=== PATIENT | female | born 1945 | race Caucasian/White ===

== ENCOUNTER 2017-03-30 02:12 | Emergency (ER) | payer OTHER ==
[~2017-03-30] VITALS: Ht 160 cm; Wt 59.0 kg
[2017-03-30 02:20] VITALS: BP 139/50
[2017-03-30 02:40] LABS: Basophils # (auto) 0 uL; Basophils % (auto) 0.3 % (0.0-2.0); DEFINITIVE VIEW TRANSMISSION; Eosinophils # (auto) 0 uL; Eosinophils % (auto) 0.1 % (0.0-7.0); Hematocrit 40.2 % (36.0-46.0); Hemoglobin 12.9 g/dL (12.2-16.2); Lymphocytes # (auto) 1.1 uL; Lymphocytes % (auto) 9.3 % (10.0-50.0); Mean Corpuscular Hemoglobin 24.3 pg (28.0-32.0); Mean Corpuscular Hgb Conc. 32.1 g/dL (32.0-36.0); Mean Corpuscular Volume 75.9 fL (80.0-100.0); Mean Platelet Volume 9.9 fL (7.4-10.4); Monocytes # (auto) 0.1 uL; Monocytes % (auto) 1.1 % (0.0-12.0); Neutrophils # (auto) 10.8 uL; Neutrophils % (auto) 89.2 % (37.0-80.0); Platelet Count (auto) 352 10^3/uL (140-450); Red Cell Distribution Width 16.1 % (11.6-16.0); SUSPECT VIEW TRANSMISSION; White Blood Cell 12.1 10^3/uL (4.4-10.8)
[2017-03-30 02:57] LABS: Albumin 3.7 g/dL (3.4-5.0); BUN/Creatinine Ratio 12.1; Potassium 3.8 mmol/L (3.5-5.1)
[2017-03-30 03:00] LABS: Bilirubin, Total 0.4 mg/dL (0.2-1.0); Total Protein 7.9 g/dL (6.4-8.2)
[2017-03-30 03:03] LABS: Magnesium 1.3 mg/dL (1.6-2.6)
== END 2017-03-30 04:33 | disposition left against medical advice (07) ==
LOC: ER 02:12
DX: R11.2 Nausea with vomiting, unspecified (principal); R19.7 Diarrhea, unspecified; Z53.21 Procedure and treatment not carried out due to patient leaving prior to being seen by health care provider
CPT/HCPCS: 36415; 80053; 82150; 83690; 83735; 84484; 85025

== ENCOUNTER 2025-06-30 08:10 | Inpatient (IN) | payer OTHER ==
[2025-06-30] VITALS (7 sets, daily range): BP systolic 80–128; BP diastolic 36–67; PULSE 83–106; RESP 18–30; O2SAT 90–100
[~2025-06-30] VITALS: Ht 165.1 cm; Wt 59.0 kg
[~2025-06-30 08:10] MED LIST: AMLO1TAB22 PO; ATOR40TA52 PO; CARV12.544 PO; CLOP75TA70 PO; FAMO40TA7 PO; FURO40TA4 PO; GABA-1250 PO; HYDR-2792 PO; HYDR-4902 PO; LEVO125T7 PO; OXYB5TAB14 PO; PROC10TA6 PO
--- NOTE | 2025-06-30 08:24 | ED.PDOC ---
History of Present Illness HPI Comments 79-year-old female BIBA with prior medical history of diabetes, NM, CAD, cancer: Surgical history of PTCA, cancer removal of the right lobe in April and chief complaint of shortness a breath. EMS report that the patient has a had shortness a breath since 2:00 a.m. this morning with worsening symptoms associ ated with spitting of red blood. When EMS arrived on scene the patient was weak, dizzy and was satting at 80% room air, EMS gave with the patient 6 L of O2 NC which brought it up to 96% but in route down to 94%. In the ER patient is currently using muscular respiration. Denies chills, fever, N/V/D,CP. No other associated symptoms, modifiers, recent injuries or sick contacts present at this time. 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 BUFFER History Family History Family History: Reviewed,noncontributory to illness, Unknown Social History Smoker: Non-Smoker Alcohol: Denies ETOH Use Drugs: Denies Drug Use Lives In: Home Constitutional: denies: chills, diaphoresis, fatigue, fever, malaise, sweats, weakness, others EENTM: denies: blurred vision, double vision, ear bleeding, ear discharge, ear drainage, ear pain, ear ringing, eye pain, eye redness, hearing loss, mouth pain, mouth swelling, nasal discharge, nose bleeding, nose congestion, nose pain, photophobia, tearing, throat pain, throat swelling, voice changes, others Respiratory: reports: shortness of breath; denies: cough, hemoptysis, orthopnea, SOB at rest, SOB with excertion, stridor, wheezing, others Cardiovascular: denies: chest pain, dizzy spells, diaphoresis, Dyspnea on exertion, edema, irregular heart beat, left arm pain, lightheadedness, palpitations, PND, syncope, others Gastrointestinal: denies: abdomen distended, abdominal pain, blood streaked bowels, constipated, diarrhea, dysphagia, difficulty swallowing, hematemesis, melena, nausea, poor appetite, poor fluid intake, rectal bleeding, rectal pain, vomiting, others Genitourinary: denies: abnormal vagina bleeding, burning, dyspareunia, dysuria, flank pain, frequency, hematuria, incontinence, pain, , vagina discharge, urgency, others Neurological: denies: dizziness, fainting, headache, left sided numbness, left sided weakness, numbness, paresthesia, pre-existing deficit, right sided numbness, right sided weakness, seizure, speech problems, tingling, tremors, weakness, others Musculoskeletal: denies: back pain, gout, joint pain, joint swelling, muscle pain, muscle stiffness, neck pain, others Integumetry: denies: bruises, change in color, change in hair/nails, dryness, laceration, lesions, lumps, rash, wounds, others Allergic/Immunocompromised: denies: Difficulty Healing, Frequent Infections, Hives, Itching, others Hematologic/Lymphatic: denies: anemia, blood clots, easy bleeding, easy bruising, swollen glands, others Endocrine: denies: excessive hunger, excessive sweating, excessive thirst, excessive urination, flushing, intolerance to cold, intolerance to heat, unexplained weight gain, unexplained weight loss, others Psychiatric: denies: anxiety, bipolar disorder, depression, hopeless, panic disorder, schizophrenia, sleepless, suicidal, others All Other Systems: Reviewed and Negative Physical Exam General Appearance: Normal, Severe Distress HEENT: Normal ENT Inspection, Pharynx Normal, TMs Normal Neck: Full Range of Motion, Non-Tender, Normal, Normal Inspection Respiratory: Accessory Muscle Use, Chest Non-Tender, Respiratory Distress, Wheezing Cardiovascular: No Edema, No JVD, No Murmur, No Gallop, Normal Peripheral Pulses, Tachycardia Breast Exam: Deferred Gastrointestinal: No Organomegaly, Non Tender, No Pulsatile Mass, Normal Bowel Sounds, Soft Genitalia: Deferred Pelvic: Deferred Rectal: Deferred Extremities: No calf tenderness, Non-tender, No pedal edema Musculoskeletal : Apperance: Normal Neurologic: Alert, No Motor Deficits, Normal Affect, Normal Mood, No Sensory Deficits Cerebellar Function: NOT DONE Reflexes: NOT DONE Skin: Dry, Normal Color, Warm Lymphatic: No Adenopathy Was a procedure done? 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: Attending Physician Indication: Hypotension, CVP monitoring Room prepared for procedure: Yes Well Treatment Offsider performed hand hygien: Yes Maximal sterile barrier precau: Mask/Eye shield, Sterile gown Skin Preparation: Chlorhexidine gluconate, Providine iodine Skin preparation completely dr: Yes Insertion site: Right, Internal jugular Central line catheter type: Gru-[id number] dialysis Number of lumens: 3 Antiseptic ointment applied to: Yes Post Assessment: Chest X-Ray Intubation Indication: Respiratory Insufficiency Pretreated with: Analgesia Medicated with: Vecuronium Intubation Approach: Orotracheal Intubation size: cm (8) Differential Dx Considerations may include: Pneumonia Electrolyte imbalance X-Ray, Labs, Meds, VS Vital Signs Date Time Temp Pulse Resp B/P (MAP) Pulse Ox O2 Delivery O2 Flow Rate FiO2 06/30/25 17:30 72/42 06/30/25 17:25 73/41 06/30/25 17:20 77/41 06/30/25 16:31 102/53 06/30/25 16:28 95 18 102/53 (69) 94 40 06/30/25 16:00 97 06/30/25 15:45 134/68 06/30/25 15:15 113/59 06/30/25 14:53 106 30 118/67 91 40 06/30/25 14:20 101 18 139/66 (90) 92 40 06/30/25 13:45 99.7 106 30 118/67 (84) 91 99.7 06/30/25 13:30 99.7 107 30 146/68 (94) 91 99.7 06/30/25 13:15 99.7 105 30 131/62 (85) 91 99.7 06/30/25 13:00 99.7 109 30 135/63 (87) 91 99.7 06/30/25 12:45 99.7 110 30 125/65 (85) 92 99.7 06/30/25 12:30 99.7 107 30 120/66 (84) 93 99.7 06/30/25 12:15 99.7 110 30 126/63 (84) 93 99.7 06/30/25 12:00 110 06/30/25 12:00 99.7 110 30 157/64 (95) 93 99.7 06/30/25 11:45 99.7 108 30 136/67 (90) 95 99.7 06/30/25 11:30 162/73 06/30/25 11:30 99.7 109 30 152/69 (96) 95 99.7 06/30/25 11:28 108 06/30/25 11:17 108 18 149/70 (96) 100 40 06/30/25 11:15 105 30 136/69 (91) 100 06/30/25 11:00 105 30 118/61 (80) 100 06/30/25 10:45 103 30 101/55 (70) 99 06/30/25 10:30 105 06/30/25 10:15 128/45 06/30/25 10:15 102 18 128/45 (72) 96 100 06/30/25 10:15 102 18 128/45 (72) 96 100 06/30/25 10:14 128/45 06/30/25 09:25 111 30 128/45 (72) 99 06/30/25 09:03 Bi-Pap+ 100 100 06/30/25 09:00 97.0 127 30 169/79 (109) 99 97.0 06/30/25 08:34 127 Facial BiPAP Mask 100 06/30/25 08:15 119 26 225/94 84 Lab Test 06/30/25 16:51 06/30/25 14:09 06/30/25 11:45 06/30/25 11:09 Range/Units Troponin I High Sensitivity 30 30 </=34 ng/L Lactic Acid Level 3.3 *H 0.4-2.0 mmol/L Urine Color Light-yellow Yellow Urine Clarity Hazy H Clear Urine pH 6.0 5.0-9.0 Urine Specific Diamond 1.015 1.001-1.035 Urine Protein 3+ H Negative Urine Ketones Negative Negative Urine Blood Negative Negative /uL Urine Nitrite Negative Negative Urine Bilirubin Negative Negative Urine Urobilinogen Normal Negative mg/dL Urine Leukocyte Esterase Negative Negative /uL Urine RBC 2 0 - 4 /hpf Urine Microscopic WBC 6 H 0-5 /HPF Urine Squamous Epithelial Cells Few <5 /hpf Urine Bacteria None seen None Seen /hpf Urine Glucose Normal Normal mg/dL Blood Gas Specimen Type Arterial Blood Gas Sample Site Right radial Blood Gas Patient Temperature 37.0 Arterial Blood Date Drawn [id number] Arterial Blood pH 7.235 *L 7.350-7.450 Arterial Blood Partial Pressure CO2 45.1 H 32.0-45.0 mmHg Arterial Blood Partial Pressure O2 321.4 *H 83.0-108.0 mmHg Arterial Blood HCO3 18.7 L 21.0-28.0 mmol/L Arterial Blood Oxygen Saturation 99.6 H 94.0-98.0 % Arterial Blood Base Excess -8.5 L -2.0-3.0 mmol/L Arterial Blood Oxyhemoglobin 98.4 H 94.0-98.0 % Arterial Blood Carboxyhemoglobin 0.6 0.5-1.5 % Arterial Blood Methemoglobin 0.6 0.0-1.5 % Quintin Test Modified Blood Gas Total Hemoglobin 11.40 L 12.0-16.0 g/dL Blood Gas Set Respiration Rate 18.0 Blood Gas Modality Vent - ac FiO2 % 100.0 Blood Gas Tidal Volume 450.0 Blood Gas PEEP or CPAP 5.0 Blood Gas Critical Value Read Back Yes Blood Gas Notified Whom louisa Montaño md Blood Gas Notified Time [id number] Blood Gas Notified By lisa Rivero development vice president Test 06/30/25 09:48 06/30/25 09:33 06/30/25 09:02 06/30/25 08:50 Range/Units Lactic Acid Level 2.9 *H 0.4-2.0 mmol/L Blood Gas Specimen Type Arterial Blood Gas Sample Site Right radial Blood Gas Patient Temperature 37.0 Arterial Blood Date Drawn [id number] Arterial Blood pH 7.289 L 7.350-7.450 Arterial Blood Partial Pressure CO2 37.7 32.0-45.0 mmHg Arterial Blood Partial Pressure O2 245.1 H 83.0-108.0 mmHg Arterial Blood HCO3 17.7 L 21.0-28.0 mmol/L Arterial Blood Oxygen Saturation 99.4 H 94.0-98.0 % Arterial Blood Base Excess -8.2 L -2.0-3.0 mmol/L Arterial Blood Oxyhemoglobin 98.2 H 94.0-98.0 % Arterial Blood Carboxyhemoglobin 0.9 0.5-1.5 % Arterial Blood Methemoglobin 0.3 0.0-1.5 % Quintin Test Yes Blood Gas Total Hemoglobin 11.70 L 12.0-16.0 g/dL Blood Gas Modality Mask - bipap FiO2 % 100.0 Blood Gas EPAP 5 Blood Gas IPAP 12 POC Glucose 205 H 70-106 mg/dl White Blood Count 1.9 L 4.4-10.8 10^3/uL Red Blood Count 4.36 4.0-5.20 10^6/uL Hemoglobin 12.4 12.2-16.2 g/dL Hematocrit 37.6 36.0-46.0 % Mean Corpuscular Volume 86.4 80.0-100.0 fL Mean Corpuscular Hemoglobin 28.4 28.0-32.0 pg Mean Corpuscular Hemoglobin Concent 32.9 32.0-36.0 g/dL Red Cell Distribution Width 15.8 H 11.8-14.3 % Platelet Count 72 L 140-450 10^3/uL Mean Platelet Volume 7.8 6.9-10.8 fL Neutrophils (%) (Auto) 54.2 37.0-80.0 % Lymphocytes (%) (Auto) 43.7 10.0-50.0 % Monocytes (%) (Auto) 1.6 0.0-12.0 % Eosinophils (%) (Auto) 0.2 0.0-7.0 % Basophils (%) (Auto) 0.3 0.0-2.0 % Neutrophils # (Auto) 1.0 L 1.6-8.6 10 ^3/uL Lymphocytes # (Auto) 0.8 0.4-5.4 10 ^3/uL Monocytes # (Auto) 0 0-1.3 10 ^3/uL Eosinophils # (Auto) 0 0-0.8 10 ^3/uL Basophils # (Auto) 0 0-0.2 10 ^3/uL Nucleated Red Blood Cells 0.9 % Platelet Estimate Decreased Clumped Platelets Few Anisocytosis (manual) Slight Sodium Level 138 136-145 mmol/L Potassium Level 4.9 3.5-5.1 mmol/L Chloride Level 107 98-107 mmol/L Carbon Dioxide Level 19 L 20-31 mmol/L Anion Gap 12 5-15 Blood Urea Nitrogen 27 H 9-23 mg/dL Creatinine 2.18 H 0.550-1.02 mg/dL Glomerular Filtration Rate Calc 23 >90 mL/min BUN/Creatinine Ratio 12.4 10.0-20.0 Serum Glucose 198 H 74-106 mg/dL Calcium Level 9.3 8.7-10.4 mg/dL Total Bilirubin 0.4 0.2-1.0 mg/dL Aspartate Amino Transferase (AST) 43 H 13-40 U/L Alanine Aminotransferase (ALT) 62 H 7-40 U/L Alkaline Phosphatase 88 46-116 U/L Troponin I High Sensitivity 22 </=34 ng/L B-Type Natriuretic Peptide 73.25 0-100 pg/mL Total Protein 6.1 5.7-8.2 g/dL Albumin 3.9 3.2-4.8 g/dL Current Medications Medications (Trade) Dose Ordered Sig/[place] Route Start Time Stop Time Status Last Admin Methylprednisolone Sodium Succinate (Solu Medrol) 125 mg ONCE ONCE IV 06/30/25 08:30 06/30/25 08:31 DC 06/30/25 08:39 Albuterol (Ventolin Medneb) 20 mg ONCE ONCE NEB 06/30/25 08:30 06/30/25 08:31 DC 06/30/25 08:33 Magnesium Sulfate/ Dextrose 100 ml @ 100 mls/hr ONCE ONCE IV 06/30/25 08:30 06/30/25 09:29 DC 06/30/25 08:41 Piperacillin Sod/ Tazobactam Sod 100 ml @ 100 mls/hr ONCE ONCE IV 06/30/25 08:30 06/30/25 09:29 DC 06/30/25 11:50 Clindamycin Phosphate 50 ml @ 50 mls/hr ONCE ONCE IV 06/30/25 08:30 06/30/25 09:29 DC 06/30/25 11:50 Sodium Chloride 1,000 ml @ 1,000 mls/hr Q1H ONCE IV 06/30/25 08:30 06/30/25 09:29 DC 06/30/25 09:00 Sodium Chloride 1,000 ml @ 150 mls/hr Q6H40M ONCE IV 06/30/25 08:30 06/30/25 15:09 DC 06/30/25 11:50 Ondansetron HCl (Zofran) 4 mg ONCE ONCE IV 06/30/25 10:00 06/30/25 10:11 DC 06/30/25 10:00 Rocuronium [place] 100 mg ONCE ONCE IV 06/30/25 10:15 06/30/25 10:16 DC 06/30/25 10:14 Etomidate 20 mg ONCE ONCE IV 06/30/25 10:15 06/30/25 10:16 DC 06/30/25 10:14 Midazolam HCl 50 ml @ 1 mls/hr Q24H IV 06/30/25 10:15 06/30/25 10:15 Norepinephrine Bitartrate 250 ml @ 3.75 mls/hr Q24H IV 06/30/25 17:15 06/30/25 17:20 [place] [id number] Ph: [phone] DIAGNOSTIC IMAGING Diagnostic Imaging Report : [id number] Signed PATIENT: FAB ROJAS ACCT: [id number] UNIT: [id number] : 1945 LOC: ER ROOM / BED: / AGE / SEX: 79 / F ADM STATUS: REG ER SERVICE 5 ORDERING PHYSICIAN: HUA MONTAÑO MD PROCEDURE(s): CXRP - CHEST PORTABLE REASON: sob ORDER NUMBER(s): [id number], ACCESSION NUMBER(s): [id number] XY CHEST PORTABLE, HISTORY: sob COMPARISON: None None TECHNICAL DATA: 1 view of the chest was obtained. FINDINGS: Lines and tubes: None Cardiomediastinal silhouette: normal Pulmonary vasculature: normal Lung expansion: normal Lung airspace: Left basilar patchy airspace opacity could be pneumonia. Lung interstitium: normal Pleura: normal Pneumothorax: no Bones: Unremarkable Other: no IMPRESSION: Left basilar patchy airspace opacity could be pneumonia. ATED BY: JOHN IQBAL MD DICTATED DATE/TIME: 06/30/25853 SIGNED BY: JOHN IQBAL MD SIGNED DATE/TIME: 06/30/25853 CC: Patient in distress. Using accessory muscles. Blood pressure elevated. Tachycardia. Was placed on BiPAP. Was given steroid Was given breathing treatment. Was given magnesium. Recently had lung surgery. Establish intravenous access. Was given fluids. Sepsis protocol. Continue to monitor. [place] approved inpatient admission [phone]. Time of 1ST Reevaluation: 08:50 Reevaluation 1ST: Unchanged Patient Education/Counseling: Diagnosis, Treatment, Prognosis Family Education/Counseling: No Family Present SEPSIS Sepsis Screen Physician Orders Chest Portable (06/30/25 08:16) Blood Culture (06/30/25 08:16) BIPAP (06/30/25 08:29) Abg W/ Co-Ox (06/30/25 09:45) Ondansetron Hcl (Zofran) (06/30/25 10:00) Chest Portable (06/30/25 10:15) Ventilator Orders (06/30/25 10:15) Abg W/ Co-Ox (06/30/25 11:15) Respiratory Culture W/ Gs (06/30/25 10:15) Midazolam Drip 50 Mg/50ml (Versed Drip 5 (06/30/25 10:15) Rass Sedation Scale Q1HR (06/30/25 10:15) Ngt/Ogt (06/30/25 ) Insert/Manage Urinary Catheter QSHIFT (06/30/25 11:45) Norepinephrine 8 Mg/250ml Kit (Levophed) (06/30/25 17:15) Vital Signs Date Time Temp Pulse Resp B/P (MAP) Pulse Ox O2 Delivery O2 Flow Rate FiO2 06/30/25 17:30 72/42 06/30/25 17:25 73/41 06/30/25 17:20 77/41 06/30/25 16:31 102/53 06/30/25 16:28 95 18 102/53 (69) 94 40 06/30/25 16:00 97 06/30/25 15:45 134/68 06/30/25 15:15 113/59 06/30/25 14:53 106 30 118/67 91 40 06/30/25 14:20 101 18 139/66 (90) 92 40 06/30/25 13:45 99.7 106 30 118/67 (84) 91 99.7 06/30/25 13:30 99.7 107 30 146/68 (94) 91 99.7 06/30/25 13:15 99.7 105 30 131/62 (85) 91 99.7 06/30/25 13:00 99.7 109 30 135/63 (87) 91 99.7 06/30/25 12:45 99.7 110 30 125/65 (85) 92 99.7 06/30/25 12:30 99.7 107 30 120/66 (84) 93 99.7 06/30/25 12:15 99.7 110 30 126/63 (84) 93 99.7 06/30/25 12:00 110 06/30/25 12:00 99.7 110 30 157/64 (95) 93 99.7 06/30/25 11:45 99.7 108 30 136/67 (90) 95 99.7 06/30/25 11:30 162/73 06/30/25 11:30 99.7 109 30 152/69 (96) 95 99.7 06/30/25 11:28 108 06/30/25 11:17 108 18 149/70 (96) 100 40 06/30/25 11:15 105 30 136/69 (91) 100 06/30/25 11:00 105 30 118/61 (80) 100 06/30/25 10:45 103 30 101/55 (70) 99 06/30/25 10:30 105 06/30/25 10:15 128/45 06/30/25 10:15 102 18 128/45 (72) 96 100 06/30/25 10:15 102 18 128/45 (72) 96 100 06/30/25 10:14 128/45 06/30/25 09:25 111 30 128/45 (72) 99 06/30/25 09:03 Bi-Pap+ 100 100 06/30/25 09:00 97.0 127 30 169/79 (109) 99 97.0 06/30/25 08:34 127 Facial BiPAP Mask 100 06/30/25 08:15 119 26 225/94 84 Laboratory Tests Test 06/30/25 08:50 06/30/25 09:48 06/30/25 14:09 White Blood Count 1.9 10^3/uL (4.4-10.8) L Lactic Acid Level 2.9 mmol/L (0.4-2.0) *H 3.3 mmol/L (0.4-2.0) *H Medications Medications Dose Ordered Sig/[place] Route Start Time Stop Time Status Last Admin Dose Admin Albuterol 20 mg ONCE ONCE NEB 06/30/25 08:30 06/30/25 08:31 DC 06/30/25 08:33 Clindamycin Phosphate 50 ml @ 50 mls/hr ONCE ONCE IV 06/30/25 08:30 06/30/25 09:29 DC 06/30/25 11:50 Etomidate 20 mg ONCE ONCE IV 06/30/25 10:15 06/30/25 10:16 DC 06/30/25 10:14 Magnesium Sulfate/ Dextrose 100 ml @ 100 mls/hr ONCE ONCE IV 06/30/25 08:30 06/30/25 09:29 DC 06/30/25 08:41 Methylprednisolone Sodium Succinate 125 mg ONCE ONCE IV 06/30/25 08:30 06/30/25 08:31 DC 06/30/25 08:39 Midazolam HCl 50 ml @ 1 mls/hr Q24H IV 06/30/25 10:15 06/30/25 10:15 Norepinephrine Bitartrate 250 ml @ 3.75 mls/hr Q24H IV 06/30/25 17:15 06/30/25 17:20 Ondansetron HCl 4 mg ONCE ONCE IV 06/30/25 10:00 06/30/25 10:11 DC 06/30/25 10:00 Piperacillin Sod/ Tazobactam Sod 100 ml @ 100 mls/hr ONCE ONCE IV 06/30/25 08:30 06/30/25 09:29 DC 06/30/25 11:50 Rocuronium [place] 100 mg ONCE ONCE IV 06/30/25 10:15 06/30/25 10:16 DC 06/30/25 10:14 Sodium Chloride 1,000 ml @ 150 mls/hr Q6H40M ONCE IV 06/30/25 08:30 06/30/25 15:09 DC 06/30/25 11:50 Sodium Chloride 1,000 ml @ 1,000 mls/hr Q1H ONCE IV 06/30/25 08:30 06/30/25 09:29 DC 06/30/25 09:00 Departure 1 Departure Time of Disposition: 08:58 Impression: Primary Impression: Acute respiratory failure Qualified Codes: J96.01 - Acute respiratory failure with hypoxia Additional Impression: Sepsis Qualified Codes: A41.9 - Sepsis, unspecified organism Disposition: ADMITTED INPATIENT Admit to: Med Surg Condition: Guarded Critical Care Note Critical Care Time?: Yes (90 min-critical care time only) Stability Stability form required: No Heart Score Heart Score: Heart Score Response (Comments) Value History Slightly Suspicious 0 EKG Normal 0 Age >65 2 Risk Factors >3 or Hx ASHD 2 Troponin Normal limit 0 Total 4 I personally scribed for HUA MONTAÑO MD ([email or web address]) on 06/30/25 at 08:24. Electronically submitted by Robbie Mendoza ([facility]). I personally scribed for HUA MONTAÑO MD ([email or web address]) on 06/30/25 at 09:27. Electronically submitted by Robbie Mendoza ([facility]). HUA MONTAÑO MD Jun 30, 2025 08:24
[2025-06-30] MEDS: ALBUTEROL SULF 2.5 MG/0.5ML(0.5%) NEB SOLN ONE (08:31)
[2025-06-30] MEDS: ALBUTEROL SULF 2.5 MG/0.5ML(0.5%) NEB SOLN NEB ONE (08:33)
[2025-06-30] MEDS: methylPREDNISolone SOD SUCC 125 MG/2 ML VL IV ONE (08:39)
[2025-06-30] MEDS: MAGNESIUM SULFATE 1GM/100ML 100 ML IV ONE (08:41)
--- NOTE | 2025-06-30 08:57 | DVH ---
XY CHEST PORTABLE, HISTORY: sob COMPARISON: None None TECHNICAL DATA: 1 view of the chest was obtained. FINDINGS: Lines and tubes: None Cardiomediastinal silhouette: normal Pulmonary vasculature: normal Lung expansion: normal Lung airspace: Left basilar patchy airspace opacity could be pneumonia. Lung interstitium: normal Pleura: normal Pneumothorax: no Bones: Unremarkable Other: no IMPRESSION: Left basilar patchy airspace opacity could be pneumonia.
[2025-06-30] MEDS: SODIUM CHLORIDE 0.9% 1,000 ML IV ONE ×2 (09:00→11:50)
[2025-06-30 09:13] LABS: Hematocrit 37.6 % (36.0-46.0); Hemoglobin 12.4 g/dL (12.2-16.2); Mean Corpuscular Hemoglobin 28.4 pg (28.0-32.0); Mean Corpuscular Volume 86.4 fL (80.0-100.0); Nucleated Red Blood Cells % 0.9 %
[2025-06-30 09:26] LABS: Albumin 3.9 g/dL (3.2-4.8); Alkaline Phosphatase 88 U/L (46-116); Anion Gap 12 (5-15); BUN/Creatinine Ratio 12.4 (10.0-20.0); Bilirubin, Total 0.4 mg/dL (0.2-1.0); Calcium 9.3 mg/dL (8.7-10.4); Potassium 4.9 mmol/L (3.5-5.1); Sodium 138 mmol/L (136-145); Total Protein 6.1 g/dL (5.7-8.2)
[2025-06-30 09:28] LABS: Alanine Aminotransferase 62 U/L (7-40); Blood Urea Nitrogen 27 mg/dL (9-23); Carbon Dioxide 19 mmol/L (20-31); Chloride 107 mmol/L (98-107); Glucose 198 mg/dL (74-106)
[2025-06-30 09:43] LABS: Base Excess -8.2 mmol/L (-2.0-3.0)
[2025-06-30 09:44] LABS: Anisocytosis Slight
[2025-06-30] MEDS: ONDANSETRON HCL 4 MG/2 ML VIAL IV ONE (10:00)
[2025-06-30] MEDS: ONDANSETRON HCL 4 MG/2 ML VIAL ONE (10:03)
[2025-06-30] MEDS: ROCURONIUM 10MG/ML 10ML VIAL IV ONE ×2 (10:14→10:35)
[2025-06-30] MEDS: ETOMIDATE (2MG/ML) 20ML VIAL IV ONE ×2 (10:14→10:36)
[2025-06-30] MEDS: MIDAZOLAM DRIP 50 mg/50mL 50 ML IV SCH (10:15)
[2025-06-30 10:31] LABS: Lactic Acid w/Reflex 2.9 mmol/L (0.4-2.0)
[2025-06-30] MEDS: MIDAZOLAM DRIP 50 mg/50mL 50 ML IV ONE (10:35)
--- NOTE | 2025-06-30 11:08 | DVH ---
XY CHEST PORTABLE, HISTORY: Post intubation COMPARISON: XY CHEST PORTABLE on DOS: 06/30/25 XY CHEST PORTABLE on DOS: 06/30/25 TECHNICAL DATA: 1 view of the chest was obtained. FINDINGS: Lines and tubes: ET in the mid thoracic trachea, NG in the stomach. Right sided CVC is noted. Cardiomediastinal silhouette: normal Pulmonary vasculature: normal Lung expansion: normal Lung airspace: Left basilar patchy airspace opacity could be pneumonia. Lung interstitium: normal Pleura: normal Pneumothorax: no Bones: Unremarkable Other: no IMPRESSION: ET in the mid thoracic trachea, NG in the stomach. Left basilar patchy airspace opacity stable.
--- NOTE | 2025-06-30 11:46 | ECG ---
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
[2025-06-30] MEDS: PIPERACILLIN-TAZOB 3.375GM 100 ML IV ONE (11:50)
[2025-06-30] MEDS: CLINDAMYCIN 300MG IV 50 ML IV ONE (11:50)
[2025-06-30 11:59] LABS: Urine Protein, UAD 3+ (Negative)
[2025-06-30 12:25] LABS: Base Excess -8.5 mmol/L (-2.0-3.0)
[2025-06-30] MEDS: NOREPINEPHRINE 8 MG/250ML KIT 250 ML IV ONE (17:19)
[2025-06-30] MEDS: NOREPINEPHRINE 8 MG/250ML KIT 250 ML IV SCH (17:20)
--- NOTE | 2025-06-30 18:13 | DVHHP2 ---
Admitting Diagnosis: Shortness of breaths History of Present Illness 79-year-old female RADHA with prior medical history of diabetes, ID, CAD, cancer: Surgical history of PTCA, cancer removal of the right lobe in April and chief complaint of shortness a breath. EMS report that the patient has a had shortness a breath since 2:00 a.m. this morning with worsening symptoms associated with spitting of red blood. When EMS arrived on scene the patient was weak, dizzy and was satting at 80% room air, EMS gave with the patient 6 L of O2 NC which brought it up to 96% but in route down to 94%. In the ER patient is currently using muscular respiration. Denies chills, fever, N/V/D,CP. No other associated symptoms, modifiers, recent injuries or sick contacts present at this time. 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 History Family History Family History: Reviewed,noncontributory to illness, Unknown Social History Smoker: Non-Smoker Alcohol: Denies ETOH Use Drugs: Denies Drug Use Lives In: Home Allergies: Coded Allergies: NO KNOWN ALLERGIES (Unverified , 03/30/17) Current Medications Current Medications Medications (Trade) Dose Ordered Sig/[place] Route PRN Reason Start Time Stop Time Status Last Admin Midazolam HCl 50 ml @ 1 mls/hr Q24H IV 06/30/25 10:15 06/30/25 10:15 Norepinephrine Bitartrate 250 ml @ 3.75 mls/hr Q24H IV 06/30/25 17:15 06/30/25 17:20 Vital Signs Vital Signs Date Time Temp Pulse Resp B/P (MAP) Pulse Ox O2 Delivery O2 Flow Rate FiO2 06/30/25 19:03 82/40 06/30/25 18:00 99.0 92 30 91 99.0 06/30/25 16:28 40 06/30/25 09:03 Bi-Pap+ Physical Exam Generally 79 years old woman, intubated and sedated. HEENT-atraumatic normocephalic Heart-regular rate and rhythm Lungs-decreased breath sounds bilaterally Abdomen soft nontender nondistended Musculoskeletal-no edema cyanosis Neuro-intubated and sedated SEPSIS Sepsis Screen Date sepsis recognized/suspect: Jun 30, 2025 Time Sepsis recognized/suspect: 09 Recent Procedure: No On Antibiotic Therapy: Yes Respiratory Rate >20: Yes Heart Rate >90: Yes Temp<36 C (96.8 F) or >38.3 C: No SBP <90 or MAP <65 mmHG: No New Acute Mental Status Change: No Is the patient on CPAP, BIPAP,: Yes Physician Orders Chest Portable (06/30/25 08:16) Blood Culture (06/30/25 08:16) BIPAP (06/30/25 08:29) Abg W/ Co-Ox (06/30/25 09:45) Ondansetron Hcl (Zofran) (06/30/25 10:00) Chest Portable (06/30/25 10:15) Ventilator Orders (06/30/25 10:15) Abg W/ Co-Ox (06/30/25 11:15) Respiratory Culture W/ Gs (06/30/25 10:15) Midazolam Drip 50 Mg/50ml (Versed Drip 5 (06/30/25 10:15) Rass Sedation Scale Q1HR (06/30/25 10:15) Ngt/Ogt (06/30/25 ) Insert/Manage Urinary Catheter QSHIFT (06/30/25 11:45) Norepinephrine 8 Mg/250ml Kit (Levophed) (06/30/25 17:15) Lactic Acid W/ Reflex Order (06/30/25 19:32) Vancomycin Per Pharmacy (06/30/25 19:45) Piperacillin-Tazob 3.375gm (Zosyn 3.375g (06/30/25 22:00) Abdomen Limited (06/30/25 19:42) *[facility] (06/30/25 19:42) Abdomen Complete Sonogram (06/30/25 19:43) Albuterol Medneb (Ventolin Medneb) (07/01/25 06:00) Ipratropium Medneb (Atrovent Medneb) (07/01/25 06:00) Admit (06/30/25 19:43) Code Status (06/30/25 19:43) Vital Signs .PER UNIT PROTOCOL (06/30/25 19:43) Review Orders With Adm. (06/30/25 19:43) Encourage Activity As Tolerate (06/30/25:43) Npo (Nothing By Mouth) Diet (07/01/25 Breakfast) Sodium Chloride Lock (Saline Lock Ns) (06/30/25 22:00) Docusate Sodium Capsule (Colace Capsule) (06/30/25 19:45) Acetaminophen Tablet (Tylenol Tablet) (06/30/25 19:45) Notify Md Of Changes From Base (06/30/25:43) Advance Directive (06/30/25:43) Patient Condition (06/30/25:43) Allergies (06/30/25:43) Hydrocodone-Acet 5/325mg Tab ([place] 32 (06/30/25 19:45) Ondansetron Hcl (Zofran) (06/30/25 19:45) Glucose Blood (Accu-Chek Comfort Curve T (07/01/25 00:00) Mild Sliding Scale Npo - Q6hr (07/01/25 00:00) Dextrose 50% Syringe (06/30/25 19:45) Complete Blood Count (07/01/25 05:00) Complete Blood Count (07/02/25 05:00) Complete Blood Count (07/03/25 05:00) Complete Blood Count (07/04/25 05:00) Complete Blood Count (07/05/25 05:00) Comprehensive Metabolic Panel (07/01/25 05:00) Comprehensive Metabolic Panel (07/02/25 05:00) Comprehensive Metabolic Panel (07/03/25 05:00) Comprehensive Metabolic Panel (07/04/25 05:00) Comprehensive Metabolic Panel (07/05/25 05:00) Vital Signs Date Time Temp Pulse Resp B/P (MAP) Pulse Ox O2 Delivery O2 Flow Rate FiO2 06/30/25 19:03 82/40 06/30/25 19:03 82/40 06/30/25 18:45 70/44 06/30/25 18:00 99.0 92 30 86/54 (65) 91 99.0 06/30/25 17:45 99.1 92 30 89/54 (66) 91 99.1 06/30/25 17:30 72/42 06/30/25 17:30 99.1 92 30 72/42 (52) 91 99.1 06/30/25 17:25 73/41 06/30/25 17:20 77/41 06/30/25 17:15 99.1 92 30 70/42 (51) 91 99.1 06/30/25 17:00 99.1 92 30 85/47 (60) 91 99.1 06/30/25 16:45 99.1 95 30 92/51 (65) 91 99.1 06/30/25 16:31 102/53 06/30/25 16:30 99.1 95 30 102/53 (69) 91 99.1 06/30/25 16:28 95 18 102/53 (69) 94 40 06/30/25 16:15 99.1 94 30 93/51 (65) 91 99.1 06/30/25 16:00 97 06/30/25 16:00 99.1 96 30 98/56 (70) 91 99.1 06/30/25 15:45 134/68 06/30/25 15:45 99.0 96 30 117/57 (77) 91 99.0 06/30/25 15:30 99.1 100 30 125/63 (83) 91 99.1 06/30/25 15:15 99.1 94 30 113/59 (77) 91 99.1 06/30/25 15:15 113/59 06/30/25 15:00 99.3 101 30 130/63 (85) 91 99.3 06/30/25 14:53 106 30 118/67 91 40 06/30/25 14:45 99.3 101 30 134/68 (90) 91 99.3 06/30/25 14:30 99.3 99 30 131/69 (89) 91 99.3 06/30/25 14:20 101 18 139/66 (90) 92 40 06/30/25 14:15 99.5 101 30 139/66 (90) 91 99.5 06/30/25 14:00 99.7 102 30 131/64 (86) 91 99.7 06/30/25 13:45 99.7 106 30 118/67 (84) 91 99.7 06/30/25 13:30 99.7 107 30 146/68 (94) 91 99.7 06/30/25 13:15 99.7 105 30 131/62 (85) 91 99.7 06/30/25 13:00 99.7 109 30 135/63 (87) 91 99.7 06/30/25 12:45 99.7 110 30 125/65 (85) 92 99.7 06/30/25 12:30 99.7 107 30 120/66 (84) 93 99.7 06/30/25 12:15 99.7 110 30 126/63 (84) 93 99.7 06/30/25 12:00 110 06/30/25 12:00 99.7 110 30 157/64 (95) 93 99.7 06/30/25 11:45 99.7 108 30 136/67 (90) 95 99.7 06/30/25 11:30 162/73 06/30/25 11:30 99.7 109 30 152/69 (96) 95 99.7 06/30/25 11:28 108 06/30/25 11:17 108 18 149/70 (96) 100 40 06/30/25 11:15 105 30 136/69 (91) 100 06/30/25 11:00 105 30 118/61 (80) 100 06/30/25 10:45 103 30 101/55 (70) 99 06/30/25 10:30 105 06/30/25 10:15 128/45 06/30/25 10:15 102 18 128/45 (72) 96 100 06/30/25 10:15 102 18 128/45 (72) 96 100 06/30/25 10:14 128/45 06/30/25 09:25 111 30 128/45 (72) 99 06/30/25 09:03 Bi-Pap+ 100 100 06/30/25 09:00 97.0 127 30 169/79 (109) 99 97.0 06/30/25 08:34 127 Facial BiPAP Mask 100 06/30/25 08:15 119 26 225/94 84 Laboratory Tests Test 06/30/25 08:50 06/30/25 09:48 06/30/25 14:09 White Blood Count 1.9 10^3/uL (4.4-10.8) L Lactic Acid Level 2.9 mmol/L (0.4-2.0) *H 3.3 mmol/L (0.4-2.0) *H Medications Medications Dose Ordered Sig/[place] Route Start Time Stop Time Status Last Admin Dose Admin Albuterol 20 mg ONCE ONCE NEB 06/30/25 08:30 06/30/25 08:31 DC 06/30/25 08:33 Clindamycin Phosphate 50 ml @ 50 mls/hr ONCE ONCE IV 06/30/25 08:30 06/30/25 09:29 DC 06/30/25 11:50 Etomidate 20 mg ONCE ONCE IV 06/30/25 10:15 06/30/25 10:16 DC 06/30/25 10:14 Magnesium Sulfate/ Dextrose 100 ml @ 100 mls/hr ONCE ONCE IV 06/30/25 08:30 06/30/25 09:29 DC 06/30/25 08:41 Methylprednisolone Sodium Succinate 125 mg ONCE ONCE IV 06/30/25 08:30 06/30/25 08:31 DC 06/30/25 08:39 Midazolam HCl 50 ml @ 1 mls/hr Q24H IV 06/30/25 10:15 06/30/25 10:15 Norepinephrine Bitartrate 250 ml @ 3.75 mls/hr Q24H IV 06/30/25 17:15 06/30/25 17:20 Ondansetron HCl 4 mg ONCE ONCE IV 06/30/25 10:00 06/30/25 10:11 DC 06/30/25 10:00 Piperacillin Sod/ Tazobactam Sod 100 ml @ 100 mls/hr ONCE ONCE IV 06/30/25 08:30 06/30/25 09:29 DC 06/30/25 11:50 Rocuronium Alpine 100 mg ONCE ONCE IV 06/30/25 10:15 06/30/25 10:16 DC 06/30/25 10:14 Sodium Chloride 500 ml @ 500 mls/hr Q1H ONCE IV 06/30/25 18:15 06/30/25 19:14 DC 06/30/25 18:28 Sodium Chloride 1,000 ml @ 150 mls/hr Q6H40M ONCE IV 06/30/25 08:30 06/30/25 15:09 DC 06/30/25 11:50 Sodium Chloride 1,000 ml @ 1,000 mls/hr Q1H ONCE IV 9/7/25 08:30 06/30/25 09:29 DC 06/30/25 09:00 Results Labs Test 06/30/25 16:51 06/30/25 14:09 06/30/25 11:45 06/30/25 11:09 Range/Units Troponin I High Sensitivity 30 </=34 ng/L Lactic Acid Level 3.3 *H 0.4-2.0 mmol/L Urine Color Light-yellow Yellow Urine Clarity Hazy H Clear Urine pH 6.0 5.0-9.0 Urine Specific [place] 1.015 1.001-1.035 Urine Protein 3+ H Negative Urine Ketones Negative Negative Urine Blood Negative Negative /uL Urine Nitrite Negative Negative Urine Bilirubin Negative Negative Urine Urobilinogen Normal Negative mg/dL Urine Leukocyte Esterase Negative Negative /uL Urine RBC 2 0 - 4 /hpf Urine Microscopic WBC 6 H 0-5 /HPF Urine Squamous Epithelial Cells Few <5 /hpf Urine Bacteria None seen None Seen /hpf Urine Glucose Normal Normal mg/dL Blood Gas Specimen Type Arterial Blood Gas Sample Site Right radial Blood Gas Patient Temperature 37.0 Arterial Blood Date Drawn [id number] Arterial Blood pH 7.235 *L 7.350-7.450 Arterial Blood Partial Pressure CO2 45.1 H 32.0-45.0 mmHg Arterial Blood Partial Pressure O2 321.4 *H 83.0-108.0 mmHg Arterial Blood HCO3 18.7 L 21.0-28.0 mmol/L Arterial Blood Oxygen Saturation 99.6 H 94.0-98.0 % Arterial Blood Base Excess -8.5 L -2.0-3.0 mmol/L Arterial Blood Oxyhemoglobin 98.4 H 94.0-98.0 % Arterial Blood Carboxyhemoglobin 0.6 0.5-1.5 % Arterial Blood Methemoglobin 0.6 0.0-1.5 % Quintin Test Modified Blood Gas Total Hemoglobin 11.40 L 12.0-16.0 g/dL Blood Gas Set Respiration Rate 18.0 Blood Gas Modality Vent - ac FiO2 % 100.0 Blood Gas Tidal Volume 450.0 Blood Gas PEEP or CPAP 5.0 Blood Gas Critical Value Read Back Yes Blood Gas Notified Whom louisa Ratliff md Blood Gas Notified Time [id number] Blood Gas Notified By lisa Rivero brick washer Test 06/30/25 09:33 06/30/25 09:02 06/30/25 08:50 Range/Units Blood Gas EPAP 5 Blood Gas IPAP 12 POC Glucose 205 H 70-106 mg/dl White Blood Count 1.9 L 4.4-10.8 10^3/uL Red Blood Count 4.36 4.0-5.20 10^6/uL Hemoglobin 12.4 12.2-16.2 g/dL Hematocrit 37.6 36.0-46.0 % Mean Corpuscular Volume 86.4 80.0-100.0 fL Mean Corpuscular Hemoglobin 28.4 28.0-32.0 pg Mean Corpuscular Hemoglobin Concent 32.9 32.0-36.0 g/dL Red Cell Distribution Width 15.8 H 11.8-14.3 % Platelet Count 72 L 140-450 10^3/uL Mean Platelet Volume 7.8 6.9-10.8 fL Neutrophils (%) (Auto) 54.2 37.0-80.0 % Lymphocytes (%) (Auto) 43.7 10.0-50.0 % Monocytes (%) (Auto) 1.6 0.0-12.0 % Eosinophils (%) (Auto) 0.2 0.0-7.0 % Basophils (%) (Auto) 0.3 0.0-2.0 % Neutrophils # (Auto) 1.0 L 1.6-8.6 10 ^3/uL Lymphocytes # (Auto) 0.8 0.4-5.4 10 ^3/uL Monocytes # (Auto) 0 0-1.3 10 ^3/uL Eosinophils # (Auto) 0 0-0.8 10 ^3/uL Basophils # (Auto) 0 0-0.2 10 ^3/uL Nucleated Red Blood Cells 0.9 % Platelet Estimate Decreased Clumped Platelets Few Anisocytosis (manual) Slight Sodium Level 138 136-145 mmol/L Potassium Level 4.9 3.5-5.1 mmol/L Chloride Level 107 98-107 mmol/L Carbon Dioxide Level 19 L 20-31 mmol/L Anion Gap 12 5-15 Blood Urea Nitrogen 27 H 9-23 mg/dL Creatinine 2.18 H 0.550-1.02 mg/dL Glomerular Filtration Rate Calc 23 >90 mL/min BUN/Creatinine Ratio 12.4 10.0-20.0 Serum Glucose 198 H 74-106 mg/dL Calcium Level 9.3 8.7-10.4 mg/dL Total Bilirubin 0.4 0.2-1.0 mg/dL Aspartate Amino Transferase (AST) 43 H 13-40 U/L Alanine Aminotransferase (ALT) 62 H 7-40 U/L Alkaline Phosphatase 88 46-116 U/L B-Type Natriuretic Peptide 73.25 0-100 pg/mL Total Protein 6.1 5.7-8.2 g/dL Albumin 3.9 3.2-4.8 g/dL Primary Diagnosis Septic shock likely due to pneumonia Immunosuppressed state Elevated liver enzymes ALICIA on CKD Hyperglycemia Plan Intubated and sedated 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 Adjust antibiotic according to ID and sensitivity IV fluids Ultrasound kidney and liver Nephrology Dr. Huang consult Pharmacy for home med reconciliation Heparin for DVT prophylaxis Full code PPI for GI prophylaxis Plan discussed with: Spouse Problems List: (1) Acute respiratory failure Status: Acute (2) Sepsis Status: Acute Date of Service: Jun 30, 2025 Billing Provider: EUNICE LOERA MD Common Visit Codes: [id number] CARE 30-74 MIN EUNICE LOERA MD Jun 30, 2025 18:13
[2025-06-30] MEDS: SODIUM CHLORIDE 0.9% 500 ML IV ONE (18:28)
[2025-06-30] MEDS ORDERED: HYDROcodone-ACET 5/325MG TAB PO PRN (19:45)
[2025-06-30] MEDS ORDERED: DEXTROSE (50%) 50ML SYRG IV PRN (19:45)
[2025-06-30] MEDS ORDERED: DOCUSATE SOD 100 MG CAP PO PRN (19:45)
[2025-06-30] MEDS ORDERED: VANCOMYCIN PER PHARMACY 0 MG IV SCH (19:45)
[2025-06-30] MEDS ORDERED: ONDANSETRON HCL 4 MG/2 ML VIAL IV PRN (19:45)
[2025-06-30] MEDS ORDERED: ACETAMINOPHEN 325 MG TAB PO PRN (19:45)
[2025-06-30] MEDS: VANCOMYCIN 1GM/250ML KIT IV ONE (20:21)
[2025-06-30 20:30] LABS: Lactic Acid w/Reflex 3.8 mmol/L (0.4-2.0)
--- NOTE | 2025-06-30 20:43 | DVH ---
INDICATION: ALICIA and elevated lft TECHNIQUE: Multiple real-time sonographic images of the abdomen were obtained. COMPARISON: None FINDINGS: Hepatic parenchyma shows increased echogenicity suggesting steatosis The liver measures 18 .7 cm. No intrahepatic biliary ductal dilatation is noted. The gallbladder wall measures 0.23 cm and is unremarkable. No gallstones or sludge is seen. The co mmon duct measures 0.39 cm and is unremarkable. No pericholecystic fluid is noted. The right kidney measures 7.6 cm. No hydronephrosis. The left kidney measures 7.9 cm. No hydronephr osis. 1.3 cm anechoic cortical lesion left kidney consistent with cortical cysts. Bilateral renal at rophy. The spleen measures 6.7 cm, within normal limits. The echogenicity is within normal limits. The pancreas is not well visualized due to obscuration from bowel gas. The visualized portions of the IVC and aorta are grossly unremarkable. Proximal aorta measures 1.9 cm IMPRESSION: 1. Hepatic steatosis. 2. Bilateral renal atrophy.
[2025-06-30] MEDS: ALBUMIN 5% 250 ML IV ONE ×2 (22:00→22:56)
[2025-06-30] MEDS: SODIUM CHLOR 0.9% PF (SALINE LOCK) 10ML VIAL/SYR IV SCH (22:00)
[2025-06-30] MEDS ORDERED: PIPERACILLIN-TAZOB 3.375GM 100 ML IV SCH (22:00)
[2025-06-30] MEDS: PIPERACILLIN-TAZOB 3.375GM 100 ML IV SCH (23:49)
[2025-07-01] VITALS (7 sets, daily range): BP systolic 78–118; BP diastolic 25–48; PULSE 86–137; RESP 18–22; TEMP 100; O2SAT 87–99
[2025-07-01] MEDS: PHENYLEPHRINE IV 250 ML IV SCH (00:02)
[2025-07-01] MEDS: ACCU-CHEK COMFORT CURVE STRIP VI SCH (00:08)
[2025-07-01] MEDS: InsuLIN REG 1unit/0.01ml Soln (100units/ml) SC SCH (00:11)
[2025-07-01] MEDS: VASOPRESSIN 20 UNIT/ML ONE (02:21)
[2025-07-01] MEDS: VASOPRESSIN 20 UNITS in SODIUM CHL 0.9% 99 ML IV SCH (02:21)
[2025-07-01] MEDS: SODIUM BICARB 8.4% 50Meq/50ml SYR Vial IV ONE ×4 (04:07→07:30)
[2025-07-01] MEDS: SODIUM CHLORIDE 0.9% 1,000 ML IV ONE (04:07)
[2025-07-01 04:09] LABS: Base Excess -14.6 mmol/L (-2.0-3.0)
[2025-07-01 05:05] LABS: Albumin 3.3 g/dL (3.2-4.8); Alkaline Phosphatase 54 U/L (46-116); Anion Gap 12 (5-15); BUN/Creatinine Ratio 15.5 (10.0-20.0); Potassium 4.6 mmol/L (3.5-5.1); Sodium 141 mmol/L (136-145)
[2025-07-01 05:06] LABS: Alanine Aminotransferase 42 U/L (7-40); Blood Urea Nitrogen 48 mg/dL (9-23); Calcium 7.9 mg/dL (8.7-10.4); Carbon Dioxide 17 mmol/L (20-31); Chloride 112 mmol/L (98-107); Glucose 161 mg/dL (74-106); Total Protein 4.9 g/dL (5.7-8.2)
[2025-07-01 05:07] LABS: Bilirubin, Total 0.6 mg/dL (0.2-1.0)
[2025-07-01] MEDS: SODIUM BICARB 50mEq/50ml Vial 100 ML in SOD CHL 0.45% 1,000 ML IV ONE (05:43)
[2025-07-01] MEDS: ALBUTEROL SULF 2.5 MG/0.5ML(0.5%) NEB SOLN NEB SCH (07:03)
[2025-07-01] MEDS: IPRATROPIUM BROM 0.5 MG/2.5ML INH SOL NEB SCH (07:04)
[2025-07-01 07:39] LABS: Base Excess -11.6 mmol/L (-2.0-3.0)
[2025-07-01] MEDS: DOPamine 1600MCG/ML D5W 250 ML IV SCH (07:50)
[2025-07-01 08:18] LABS: Hematocrit 27.3 % (36.0-46.0); Hemoglobin 8.8 g/dL (12.2-16.2); Mean Corpuscular Hemoglobin 28.4 pg (28.0-32.0); Mean Corpuscular Volume 87.5 fL (80.0-100.0)
[2025-07-01] MEDS: SODIUM BICARB 50mEq/50ml Vial 150 ML in D5W 5% 1,000 ML IV SCH (08:30)
[2025-07-01 09:13] LABS: Total Cells Counted 100.0 (100)
[2025-07-01 09:14] LABS: Anisocytosis Slight
[2025-07-01] MEDS: fentaNYL Drip 2500mCg/250mlNS 250 ML IV ONE (10:03)
[2025-07-01] MEDS: fentaNYL Drip 2500mCg/250mlNS 250 ML IV SCH (10:03)
--- NOTE | 2025-07-01 10:19 | DVHINCON2 ---
Date of service: Jul 01, [address] Lopez Reason for Consultation Acute kidney injury History of Present Illness Patient is a 79-year-old female with past medical history significant for diabetes mellitus type 2, coronary artery disease, myocardial infarction and lung cancer who was admitted for shortness of breath and hypoxemia. patient intubated on ventilator. On admission patient found to have elevated BUN creatinine nephrology is consulted for acute kidney injury Past Medical History PAST MEDICAL HISTORY: CAD, Lung cancer, DM, DC Past Surgical History A quarter of the right lobe was removed due from cancer in April of 2025 Allergies: Coded Allergies: NO KNOWN ALLERGIES (Unverified , 03/30/17) Home Meds Reported Medications Prochlorperazine Maleate (Compazine) 10 Mg Tb, 1 TAB PO Q6HR PRN for 7 Days, #30 07/01/25 Clopidogrel Bisulfate (CLOPIDOGREL) 75 Mg Tab, 1 TAB PO DAILY for 100 Days, #100 07/01/25 Atorvastatin Calcium (ATORVASTATIN CALCIUM) 40 Mg Tab, 0.5 TAB PO DAILY for 100 Days, #50 07/01/25 Gabapentin (Gabapentin) 300 Mg Cap, 1 CAP PO DAILY for 100 Days, #100 07/01/25 Oxybutynin Chloride (Oxybutynin Chloride) 5 Mg Tab, 1 TAB PO DAILY for 100 Days, #100 07/01/25 Furosemide (Furosemide) 40 Mg Tab, 1 TAB PO BID for 100 Days, #200 07/01/25 Carvedilol (Carvedilol) 12.5 Mg Tab, 1 TAB PO BID for 100 Days, #200 07/01/25 Amlodipine Besylate (Amlodipine Besylate) 5 Mg Tab, 1 TAB PO BID for 100 Days, #200 07/01/25 Levothyroxine Sodium (Levothyroxine Sodium) 125 Mcg Tab, 1 TAB PO DAILY for 100 Days, #100 07/01/25 Hydrocodone-Acetaminophen (Hydrocodone Bitartrate/AC 5-325 mg) 1 Tab Tab, 1 TAB PO Q6HR PRN for 15 Days, #60 07/01/25 Famotidine (Famotidine) 40 Mg Tab, 1 TAB PO BID for 100 Days, #200 07/01/25 Hydralazine Hcl (Hydralazine Hcl) 10 Mg Tab, 1 TAB PO TID for 100 Days, #400 07/01/25 Current Medications Current Medications Medications (Trade) Dose Ordered Sig/[place] Route PRN Reason Start Time Stop Time Status Last Admin Norepinephrine Bitartrate 250 ml @ 3.75 mls/hr Q24H IV 06/30/25 17:15 07/01/25 04:32 Vancomycin HCl 0 ml @ 0 mls/hr UD IV 06/30/25 19:45 Piperacillin Sod/ Tazobactam Sod 100 ml @ 25 mls/hr Q8HR IV 06/30/25 22:00 06/30/25 19:41 DC Piperacillin Sod/ Tazobactam Sod 100 ml @ 25 mls/hr Q12H IV 06/30/25 22:00 07/01/25 10:15 Albuterol (Ventolin Medneb) 2.5 mg Q6HWA [facility] 07/01/25 06:00 07/01/25 07:03 Ipratropium [place] (Atrovent Medneb) 0.5 mg Q6HWA [facility] 07/01/25 06:00 07/01/25 07:04 Sodium Chloride (Saline Lock Ns) 10 ml Q8HR IV 06/30/25 22:00 Docusate Sodium (Colace Capsule) 100 mg BIDPRN PRN PO FOR CONSTIPATION 06/30/25 19:45 Acetaminophen (Tylenol Tablet) 650 mg Q6HP PRN PO PAIN SCALE 1-3 OR TEMP>100.4 06/30/25 19:45 Acetaminophen/ Hydrocodone Bitart ([place] 5/325MG Tab) 1 tab Q4HP PRN PO MODERATE PAIN (4-6 PAIN SCALE) 06/30/25 19:45 Ondansetron HCl (Zofran) 4 mg Q4HP PRN IV NAUSEA / VOMITING 06/30/25 19:45 Diagnostic Test (Pha) (Accu-Chek Comfort Curve T) 1 strip Q6HR 07/01/25 00:00 07/01/25 06:48 Insulin Human Regular (InsuLIN R) Q6HR SC 07/01/25 00:00 07/01/25 00:11 Dextrose 50 ml UD PRN IV Blood Sugar LESS THAN 60 06/30/25 19:45 Phenylephrine HCl 250 ml @ 30 mls/hr Q8H20M IV 06/30/25 23:45 07/01/25 04:33 Vasopressin 20 units/Sodium Chloride 100 ml @ 9 mls/hr Q11H7M IV 07/01/25 01:30 07/01/25 02:21 Sodium Bicarbonate 150 ml/Dextrose 1,150 ml @ 150 mls/hr Q7H40M IV 07/01/25 07:15 07/01/25 08:30 Dopamine HCl/ Dextrose 250 ml @ 11.063 mls/ hr [id number] IV 07/01/25 07:15 07/01/25 07:50 Fentanyl Citrate 250 ml @ 2.5 mls/hr Q24H IV 07/01/25 10:00 07/01/25 10:03 Review of Systems Can not be obtained due to intubation H&P Exam Vital Signs/I&O Vital Sign Date Time Temp Pulse Resp B/P (MAP) Pulse Ox O2 Delivery O2 Flow Rate FiO2 07/01/25 10:08 128 20 100/48 (65) 98 80 07/01/25 08:00 96.2 96.2 06/30/25 23:10 Mechanical Ventilator+ Intake and Output 06/30/25 07/01/25 18:59 06:59 Intake Total 1706 ml 850 ml Balance 1706 ml 850 ml Intake IV Total 1706 ml 850 ml Physical Exam Patient intubated on ventilator Lungs decreased breath sounds in the right Cardiac exam is tachycardic GI soft nontender Calero catheter Extremities no clubbing cyanosis or edema Neuro patient is a sedated Labs/Diagnostic Data Labs/Diagnostic Data Laboratory Tests Test 07/01/25 08:03 07/01/25 07:04 07/01/25 04:21 07/01/25 03:54 Range/Units White Blood Count 0.4 #*L 4.4-10.8 10^3/uL Red Blood Count 3.12 L 4.0-5.20 10^6/uL Hemoglobin 8.8 #L 12.2-16.2 g/dL Hematocrit 27.3 #L 36.0-46.0 % Mean Corpuscular Volume 87.5 80.0-100.0 fL Mean Corpuscular Hemoglobin 28.4 28.0-32.0 pg Mean Corpuscular Hemoglobin Concent 32.4 32.0-36.0 g/dL Red Cell Distribution Width 15.7 H 11.8-14.3 % Platelet Count 9 #*L 140-450 10^3/uL Mean Platelet Volume 8.4 6.9-10.8 fL Neutrophils (%) (Auto) 37.0-80.0 % Lymphocytes (%) (Auto) 10.0-50.0 % Monocytes (%) (Auto) 0.0-12.0 % Basophils (%) (Auto) 0.0-2.0 % Neutrophils # (Auto) 1.6-8.6 10 ^3/uL Lymphocytes # (Auto) 0.4-5.4 10 ^3/uL Monocytes # (Auto) 0-1.3 10 ^3/uL Differential Total Cells Counted 100.0 100 Neutrophils % (Manual) 46 37.0-80.0 Band Neutrophils % (Manual) 3 Lymphocytes % (Manual) 41 10.0-50.0 Monocytes % (Manual) 8 0-12 Eosinophils % (Manual) 1 0-7 Basophils % (Manual) 0 0.0-2.0 Metamyelocytes % (manual) 0 Myelocytes % (Manual) 0 Promyelocytes % (Manual) 0 Blast Cells % (Manual) 0 Reactive Lymphocytes 1 Platelet Estimate Markedly decreased Anisocytosis (manual) Slight Blood Gas Specimen Type Arterial Arterial Blood Gas Sample Site Right radial Right radial Blood Gas Patient Temperature 37.0 37.0 Arterial Blood Date Drawn [id number] Arterial Blood pH 7.163 *L 7.066 *L 7.350-7.450 Arterial Blood Partial Pressure CO2 46.4 H 53.3 H 32.0-45.0 mmHg Arterial Blood Partial Pressure O2 61.1 L 56.1 L 83.0-108.0 mmHg Arterial Blood HCO3 16.3 L 15.0 L 21.0-28.0 mmol/L Arterial Blood Oxygen Saturation 89.5 L 87.6 L 94.0-98.0 % Arterial Blood Base Excess -11.6 L -14.6 L -2.0-3.0 mmol/L Arterial Blood Oxyhemoglobin 88.1 L 86.4 L 94.0-98.0 % Arterial Blood Carboxyhemoglobin 1.0 0.8 0.5-1.5 % Arterial Blood Methemoglobin 0.6 0.6 0.0-1.5 % Quintin Test Modified Modified Blood Gas Total Hemoglobin 7.90 L 8.70 L 12.0-16.0 g/dL Blood Gas Set Respiration Rate 20.0 18.0 Blood Gas Modality Vent - ac Vent - ac FiO2 % 60.0 45.0 Blood Gas Tidal Volume 450.0 450.0 Blood Gas PEEP or CPAP 5.0 5.0 Blood Gas Critical Value Read Back Yes Yes Blood Gas Notified Whom marianne Lopez md, j, toshia Blood Gas Notified Time [id number] Blood Gas Notified By Railroad Signal And Switch Operator campos marina j, sort operations supervisor Sodium Level 141 136-145 mmol/L Potassium Level 4.6 3.5-5.1 mmol/L Chloride Level 112 H 98-107 mmol/L Carbon Dioxide Level 17 L 20-31 mmol/L Anion Gap 12 5-15 Blood Urea Nitrogen 48 #H 9-23 mg/dL Creatinine 3.10 #H 0.550-1.02 mg/dL Glomerular Filtration Rate Calc 15 >90 mL/min BUN/Creatinine Ratio 15.5 10.0-20.0 Serum Glucose 161 H 74-106 mg/dL Calcium Level 7.9 L 8.7-10.4 mg/dL Total Bilirubin 0.6 0.2-1.0 mg/dL Aspartate Amino Transferase (AST) 46 H 13-40 U/L Alanine Aminotransferase (ALT) 42 H 7-40 U/L Alkaline Phosphatase 54 46-116 U/L Total Protein 4.9 L 5.7-8.2 g/dL Albumin 3.3 3.2-4.8 g/dL Test 07/01/25 00:06 06/30/25 19:49 06/30/25 16:51 06/30/25 14:09 Range/Units POC Glucose 210 H 70-106 mg/dl Lactic Acid Level 3.8 *H 3.3 *H 0.4-2.0 mmol/L Troponin I High Sensitivity 30 30 </=34 ng/L Test 06/30/25 11:45 06/30/25 11:09 06/30/25 09:48 06/30/25 09:33 Range/Units Urine Color Light-yellow Yellow Urine Clarity Hazy H Clear Urine pH 6.0 5.0-9.0 Urine Specific [place] 1.015 1.001-1.035 Urine Protein 3+ H Negative Urine Ketones Negative Negative Urine Blood Negative Negative /uL Urine Nitrite Negative Negative Urine Bilirubin Negative Negative Urine Urobilinogen Normal Negative mg/dL Urine Leukocyte Esterase Negative Negative /uL Urine RBC 2 0 - 4 /hpf Urine Microscopic WBC 6 H 0-5 /HPF Urine Squamous Epithelial Cells Few <5 /hpf Urine Bacteria None seen None Seen /hpf Urine Glucose Normal Normal mg/dL Blood Gas Specimen Type Arterial Arterial Blood Gas Sample Site Right radial Right radial Blood Gas Patient Temperature 37.0 37.0 Arterial Blood Date Drawn [id number] Arterial Blood pH 7.235 *L 7.289 L 7.350-7.450 Arterial Blood Partial Pressure CO2 45.1 H 37.7 32.0-45.0 mmHg Arterial Blood Partial Pressure O2 321.4 *H 245.1 H 83.0-108.0 mmHg Arterial Blood HCO3 18.7 L 17.7 L 21.0-28.0 mmol/L Arterial Blood Oxygen Saturation 99.6 H 99.4 H 94.0-98.0 % Arterial Blood Base Excess -8.5 L -8.2 L -2.0-3.0 mmol/L Arterial Blood Oxyhemoglobin 98.4 H 98.2 H 94.0-98.0 % Arterial Blood Carboxyhemoglobin 0.6 0.9 0.5-1.5 % Arterial Blood Methemoglobin 0.6 0.3 0.0-1.5 % Quintin Test Modified Yes Blood Gas Total Hemoglobin 11.40 L 11.70 L 12.0-16.0 g/dL Blood Gas Set Respiration Rate 18.0 Blood Gas Modality Vent - ac Mask - bipap FiO2 % 100.0 100.0 Blood Gas Tidal Volume 450.0 Blood Gas PEEP or CPAP 5.0 Blood Gas Critical Value Read Back Yes Blood Gas Notified Whom louisa Ratliff md Blood Gas Notified Time [id number] Blood Gas Notified By lisa Rivero rrt Lactic Acid Level 2.9 *H 0.4-2.0 mmol/L Blood Gas EPAP 5 Blood Gas IPAP 12 Test 06/30/25 09:02 06/30/25 08:50 Range/Units POC Glucose 205 H 70-106 mg/dl White Blood Count 1.9 L 4.4-10.8 10^3/uL Red Blood Count 4.36 4.0-5.20 10^6/uL Hemoglobin 12.4 12.2-16.2 g/dL Hematocrit 37.6 36.0-46.0 % Mean Corpuscular Volume 86.4 80.0-100.0 fL Mean Corpuscular Hemoglobin 28.4 28.0-32.0 pg Mean Corpuscular Hemoglobin Concent 32.9 32.0-36.0 g/dL Red Cell Distribution Width 15.8 H 11.8-14.3 % Platelet Count 72 L 140-450 10^3/uL Mean Platelet Volume 7.8 6.9-10.8 fL Neutrophils (%) (Auto) 54.2 37.0-80.0 % Lymphocytes (%) (Auto) 43.7 10.0-50.0 % Monocytes (%) (Auto) 1.6 0.0-12.0 % Eosinophils (%) (Auto) 0.2 0.0-7.0 % Basophils (%) (Auto) 0.3 0.0-2.0 % Neutrophils # (Auto) 1.0 L 1.6-8.6 10 ^3/uL Lymphocytes # (Auto) 0.8 0.4-5.4 10 ^3/uL Monocytes # (Auto) 0 0-1.3 10 ^3/uL Eosinophils # (Auto) 0 0-0.8 10 ^3/uL Basophils # (Auto) 0 0-0.2 10 ^3/uL Nucleated Red Blood Cells 0.9 % Platelet Estimate Decreased Clumped Platelets Few Anisocytosis (manual) Slight Sodium Level 138 136-145 mmol/L Potassium Level 4.9 3.5-5.1 mmol/L Chloride Level 107 98-107 mmol/L Carbon Dioxide Level 19 L 20-31 mmol/L Anion Gap 12 5-15 Blood Urea Nitrogen 27 H 9-23 mg/dL Creatinine 2.18 H 0.550-1.02 mg/dL Glomerular Filtration Rate Calc 23 >90 mL/min BUN/Creatinine Ratio 12.4 10.0-20.0 Serum Glucose 198 H 74-106 mg/dL Calcium Level 9.3 8.7-10.4 mg/dL Total Bilirubin 0.4 0.2-1.0 mg/dL Aspartate Amino Transferase (AST) 43 H 13-40 U/L Alanine Aminotransferase (ALT) 62 H 7-40 U/L Alkaline Phosphatase 88 46-116 U/L Troponin I High Sensitivity 22 </=34 ng/L B-Type Natriuretic Peptide 73.25 0-100 pg/mL Total Protein 6.1 5.7-8.2 g/dL Albumin 3.9 3.2-4.8 g/dL Assessment Acute kidney injury superimposed Chronic Kidney Disease secondary hemodynamic mediated Acute respiratory failure, patient intubated on ventilator Septic shock Neutropenic sepsis Lungs cancer Pancytopenia Diabetes mellitus type 2 Metabolic acidosis Recommendations Closely monitor fluid and electrolytes Avoid nephrotoxic medications Calero catheter Strict I&Os IV pressors for Blood pressure support IV antibiotics Check urine electrolytes and protein excretion Bilateral small kidney reported on CT of the abdomen Hematology consult Insulin sliding scale We will continue to follow-up Patient seen and examined by myself in the ER. I discussed my plan of care with the primary nurse at the bedside I would like to thank Dr. Lopez for the consult we will continue to follow Plan discussed with: Patient JESSICA WILEY MD Jul 01, 2025 10:19
[2025-07-01 10:33] LABS: Base Excess -9.0 mmol/L (-2.0-3.0)
[2025-07-01] MEDS: MEROPENEM 1GM IVPB 50 ML IV ONE (13:15)
[2025-07-01] MEDS ORDERED: FILGRASTIM(TBO) 480 MCG/0.8 ML SYRG SC ONE (13:15)
--- NOTE | 2025-07-01 13:32 | RESUS ---
ZURI HSIEH ASSESSSMENT History of Events History of Events: Patient currently admitted as ICU status/ intubated and on the ventilator. Per Dr Mars, he was at bedside evaluating patient and providing patient family with update on POC. Noted patient to have a cardiac rhythm change on bedside cardiac monitor technician. Presented as Bradycardia and then developed into asystole. No palpable pulse detected. Zuri Hsieh called and CPR initiated. Initial Information Date: Jul 01, 2025 Time: 13:10 Location of Arrest: ER Arrest Witnessed: Yes CPR started initial time: 13:10 CPR started by whom: Hospital Staff Pre-Hospital Care: ACLS Type of arrest: Cardiac Spontaneous Respirations: No Pulse Present: No Monitoring: Pulse Oximetry, Telemetry Crash Cart Opened and Supplies: Yes Airway Ventilation Breathing at Onset: Assisted Oxygen Delivery Method: Mechanical Ventilator Comments: patient intubated prior to Zuri Hsieh Circulation Circulation #1: Time: 13:13 Circulation Comment: asystole Circulation #2: Time: 13:15 Pulse Rate (adult): 126 Blood Pressure Systolic: 178 Blood Pressure Diastolic: 69 Temperature (Fahrenheit): 100.0 Medications & Response Medications and Responses #1: Medication Time: 13:11 ADULT Medications Given ADULT: Epinephrine 1 mg Route of Administration: IV Medications and Responses #2: Medication Time: 13:12 ADULT Medications Given ADULT: Sodium Bacarbinate 50 meq, Calcium Chloride 10 mL Route of Administration: IV Medications and Responses #3: Medication Time: 13:14 ADULT Medications Given ADULT: Epinephrine 1 mg Route of Administration: IV Procedure - Central Venous Cat Comment: central line established prior to Zuri Hsieh Procedure - Calero Catheter Comment: Urinary catheter placed prior to Zuri Hsieh Nurses Notes [place] Coma Scale Eye Opening: None (1) [place] Coma Scale Verbal: None (1) [place] Coma Scale Motor: None (1) [place] Total: 168 Pupil Reaction: Non Reactive Bedside Blood Glucose: 168 EKG Rhythm: Atrial Fibrillation Time Code Ended Time Code Ended: 13:15 Post Arrest Status: Ventilated Outcome of code: Successful Family notified: Yes Attending called: Yes Code Team Present: Dr Jerad Serrano aquaculture farm manager RNHS Manasa plow and boring machine tender Tiffani ROSC Time of ROSC: 13:15 Manasa Magana Jul 01, 2025 13:32
--- NOTE | 2025-07-01 13:50 | DVHPN2 ---
Progress Note Date Seen: Jul 01, 2025 Medical Necessity Reason Pt with a Central, PICC or Fol: Yes The following are medically ne: Central Line, Mcelroy Catheter Reason for mcelroy catheter: Strict I&O Subjective Patient reports: No new complaints Review of Systems: HEENT:Normal, CVS:Normal, RESPIRATORY:Normal, GI:Normal, :Normal, MSK:Normal, NEURO:Normal Objective vital signs Vital Sign Date Time Temp Pulse Resp B/P (MAP) Pulse Ox O2 Delivery O2 Flow Rate FiO2 07/01/25 13:32 212.0 126 Mechanical Ventilator 07/01/25 12:39 90/48 07/01/25 12:02 20 99 70 Total Intake and Output 06/30/25 06/30/25 07/01/25 15:00 23:00 07:00 Intake Total 1704 ml 752 ml 100 ml Balance 1704 ml 752 ml 100 ml medications Current Medications Medications Dose Ordered Sig/[place] Route Start Time Stop Time Status Last Admin Dose Admin Midazolam HCl 50 ml @ 1 mls/hr Q24H IV 06/30/25 10:15 07/01/25 04:32 6 MLS/HR Norepinephrine Bitartrate 250 ml @ 3.75 mls/hr Q24H IV 06/30/25 17:15 07/01/25 04:32 56.25 MLS/HR Vancomycin HCl 0 ml @ 0 mls/hr UD IV 06/30/25 19:45 Albuterol 2.5 mg Q6HWA [facility] 07/01/25 06:00 07/01/25 12:03 2.5 MG Ipratropium [place] 0.5 mg Q6HWA [facility] 07/01/25 06:00 07/01/25 12:02 0.5 MG Sodium Chloride 10 ml Q8HR IV 06/30/25 22:00 Docusate Sodium 100 mg BIDPRN PRN PO 06/30/25 19:45 Acetaminophen 650 mg Q6HP PRN PO 06/30/25 19:45 Acetaminophen/ Hydrocodone Bitart 1 tab Q4HP PRN PO 06/30/25 19:45 Ondansetron HCl 4 mg Q4HP PRN IV 06/30/25 19:45 Diagnostic Test (Pha) 1 strip Q6HR 07/01/25 00:00 07/01/25 12:10 1 STRIP Insulin Human Regular Q6HR SC 07/01/25 00:00 07/01/25 12:30 2 UNITS Dextrose 50 ml UD PRN IV 06/30/25 19:45 Phenylephrine HCl 250 ml @ 30 mls/hr Q8H20M IV 06/30/25 23:45 07/01/25 04:33 135 MLS/HR Vasopressin 20 units/Sodium Chloride 100 ml @ 9 mls/hr Q11H7M IV 07/01/25 01:30 07/01/25 12:39 9 MLS/HR Sodium Bicarbonate 150 ml/Dextrose 1,150 ml @ 150 mls/hr Q7H40M IV 07/01/25 07:15 07/01/25 08:30 150 MLS/HR Dopamine HCl/ Dextrose 250 ml @ 11.063 mls/ hr [id number] IV 07/01/25 07:15 07/01/25 07:50 11.063 MLS/HR Fentanyl Citrate 250 ml @ 2.5 mls/hr Q24H IV 07/01/25 10:00 07/01/25 10:03 2.5 MLS/HR Meropenem 50 ml @ 17 mls/hr Q12HR IV 07/01/25 22:00 UNV Tbo-Filgrastim 480 mcg DAILY SC 07/02/25 10:00 UNV Examination: GENERAL:Normal, HEENT:Normal, NECK:Normal, LUNGS:Normal, LUNGS:Abnormal (intubated), CVS:Normal, ABDOMEN:Normal, MSK:Normal, SKIN:Normal, NEURO:Normal, :Normal laboratory and microbiology Laboratory Tests 07/01/25 08:03 07/01/25 04:21 Test 07/01/25 04:21 Range/Units Serum Glucose 161 H 74-106 mg/dL Microbiology Date/Time Source Procedure Growth Status 06/30/25 11:09 Sputum Gram Stain - Final Resulted 06/30/25 11:09 Sputum Respiratory Culture - Preliminary Resulted 06/30/25 09:48 Blood Blood Culture - Preliminary NO GROWTH AFTER 24 HOURS OF INCUBATION. Resulted Problem List/Assessment/Plan Problem List/Assessment/Plan #1 acute resp failure: on acv, adjust rate #2 septic shock with pneumonia: on multiple pressors #3 severe metabolic acidosis: iv bicarb #4 lung cancer s/p chemo s/p surgery #5 pancytopenia s/p chemo: neupogen #6 thrombocytopenia: transfuse #7 acute renal failure /atn: per nephrology #8 chronic systolic/diastolic heart failure long dw Jesus Alberto- reviewed labs and poor prognosis Plan discussed with: Spouse My Orders My Orders Orders - MAYUR WEATHERS MD Procedure Category Date Status Time Meropenem 1gm Ivpb PHA 07/01/25 In Process (Merrem 1gm/50ml) 13:15 Meropenem 1gm Ivpb PHA 07/01/25 Logged (Merrem 1gm/50ml) 22:00 Filgrastim-Tbo PHA 07/01/25 Logged (Granix) 13:15 Filgrastim-Tbo PHA 07/02/25 Logged (Granix) 10:00 Pheresis Platelets BBK 07/01/25 Logged 13:07 Type And Screen BBK 07/01/25 Logged 13:07 Ventilator Orders RT 07/01/25 Transmitted 13:10 Abg W/ Co-Ox RT 07/01/25 Logged 15:00 Critical Care Time (mins): 86 (critical care time excluding procedures and excluding cpr was 86 mins) Date of Service: Jul 01, 2025 Billing Provider: MAYUR WEATHERS MD Common Visit Codes: 30544-WLPTYCOV CARE 30-74 MIN, 66962-LLJFHYWT CARE-EACH +30MIN MAYUR WEATHERS MD Jul 01, 2025 13:50
--- NOTE | 2025-07-01 13:52 | DVHNC2 ---
Other Procedure Procedure CPR cpr was performed per acls protocol. pt was in asystole. give epinephrine and bicarb. Had ROSC. informed of poor prognosis Indication cardiac arrest Date of Service: Jul 01, 2025 Billing Provider: MAYUR WEATHERS MD Common Visit Codes: PROCEDURE ONLY Procedure Codes: 34547-QUCKATV CODE BLUE MAYUR WEATHERS MD Jul 01, 2025 13:52
--- NOTE | 2025-07-01 14:12 | RESUS ---
CODE BLUE ASSESSSMENT History of Events History of Events: 2nd code blue. Patient bedside athletic monitor displaying asystole. CPR initiated. Initial Information Date: Jul 01, 2025 Time: 13:34 Location of Arrest: ER Arrest Witnessed: Yes CPR started initial time: 13:34 CPR started by whom: Hospital Staff Pre-Hospital Care: ACLS Type of arrest: Cardiac Spontaneous Respirations: No Pulse Present: No Monitoring: Pulse Oximetry, Telemetry Crash Cart Opened and Supplies: Yes Airway Ventilation Breathing at Onset: Assisted Oxygen Delivery Method: Mechanical Ventilator Comments: patient intubated prior to code blue Circulation Circulation #1: Time: 13:37 Circulation Comment: asystole Circulation #2: Time: 13:38 Circulation Comment: Compressions stopped at this time. Dr Ratliff and family request. asystole Medications & Response Medications and Responses #1: Medication Time: 13:35 ADULT Medications Given ADULT: Epinephrine 1 mg Route of Administration: IV Medications and Responses #2: Medication Time: 13:37 ADULT Medications Given ADULT: Epinephrine 1 mg Route of Administration: IV Procedure - Central Venous Cat Comment: placed prior to code blue Procedure - Calero Catheter Comment: placed prior to code blue Nurses Notes [place] Coma Scale Eye Opening: None (1) [place] Coma Scale Verbal: None (1) [place] Coma Scale Motor: None (1) Pupil Reaction: Non Reactive Bedside Blood Glucose: 168 EKG Rhythm: Atrial Fibrillation Time Code Ended Time Code Ended: 13:38 Post Arrest Status: Outcome of code: Unsuccessful Patient pronounced by: Dr Ratliff Time patient pronounced: 13:38 Family notified: Yes Attending called: Yes Code Team Present: Manasa Rivera Dr, RN, RN, RN Jul 01, 2025 14:12
--- NOTE | 2025-07-01 15:18 | DVHDS ---
DATE OF DISCHARGE: 07/01/2025 SUMMARY HISTORY OF PRESENT ILLNESS: The patient is a 79-year-old lady who is admitted because of increasing shortness of breath and hemoptysis. The patient is also weak and dizzy. The patient has a history of lung cancer status post recent chemotherapy as well as previous history of lung surgery. She also has history of diabetes, congestive heart failure, and hypertension. HOSPITAL COURSE: The patient was intubated and mechanically ventilated. The patient was noted to be on multiple vasopressors. The patient's sputum grew gram-negative rods. The patient was also in acute renal failure and was seen in Nephrology consult by Dr. Herrera. Abdominal ultrasound showed bilateral renal atrophy. Chest x-ray showed evidence of left lung pneumonia. The patient was also pancytopenic with a white count of 0.4 and a platelet count of 9000. The patient eventually went into cardiac arrest. CPR was performed per ACLS protocol x 2. The patient, however, could not be resuscitated and on 07/01/2023. FINAL DIAGNOSES: * Acute respiratory failure. * Septic shock with left-sided pneumonia secondary to gram-negative rods. * Acute renal failure/ATN. * Pancytopenia with severe neutropenia. * Thrombocytopenia. * History of lung cancer status post chemo, status post surgery. * Diabetes mellitus. * Chronic systolic/diastolic heart failure. * Severe metabolic acidosis. MD HAKAN Hernandes/BLANCA TID: [id number] RECEIPT: [id number]
[2025-07-01] MEDS ORDERED: MEROPENEM 1GM IVPB 50 ML IV SCH (22:00)
[2025-07-02] MEDS ORDERED: FILGRASTIM(TBO) 480 MCG/0.8 ML SYRG SC SCH (10:00)
--- NOTE | 2025-07-04 13:44 | ECG ---
[facility] Test Date: 2025-07-01 Test Time: 13:21:30 Pat Name: FAB ROJAS Department: Room: [address] [place] [address] Gender: F Project Hire: GRAHAM : 1945 Requested By: HUA MONTAÑO Order Number: [id number] Reading MD: Measurements Intervals [place] Rate: 135 P: 0 [place]: 84 QRS: 4 QRSD: 81 T: 134 QT: 280 QTc: 420 Interpretive Statements Sinus tachycardia Ventricular premature complex Low voltage, extremity and precordial leads Anteroseptal infarct, old Abnormal T, consider ischemia, lateral leads Please click the below link to view image of tracing.
== END 2025-07-01 13:38 | DRG 871 ==
LOC: ER 08:10 → EDBD 08:10 → OVERFLOW 19:43
PROVIDERS: ADMIT Internal Medicine; ATTEND Internal Medicine
PROC: 5A09357 Assistance with Respiratory Ventilation, Less than 24 Consecutive Hours, Continuous Positive Airway Pressure (ICD-10-PCS; 2025-06-30)
PROC: 0BH17EZ Insertion of Endotracheal Airway into Trachea, Via Natural or Artificial Opening (ICD-10-PCS; 2025-06-30)
PROC: 5A1935Z Respiratory Ventilation, Less than 24 Consecutive Hours (ICD-10-PCS; 2025-06-30)
PROC: 05HM33Z Insertion of Infusion Device into Right Internal Jugular Vein, Percutaneous Approach (ICD-10-PCS; 2025-06-30)
PROC: 5A12012 Performance of Cardiac Output, Single, Manual (ICD-10-PCS; principal; 2025-07-01)
DX: A41.59 Other Gram-negative sepsis (principal); D61.810 Antineoplastic chemotherapy induced pancytopenia; J15.69 Pneumonia due to other Gram-negative bacteria; J96.01 Acute respiratory failure with hypoxia; N17.0 Acute kidney failure with tubular necrosis; R65.21 Severe sepsis with septic shock; J15.9 Unspecified bacterial pneumonia; D84.89 Other immunodeficiencies; E87.20 Acidosis, unspecified; I50.42 Chronic combined systolic (congestive) and diastolic (congestive) heart failure; I13.0 Hypertensive heart and chronic kidney disease with heart failure and stage 1 through stage 4 chronic kidney disease, or unspecified chronic kidney disease; I46.9 Cardiac arrest, cause unspecified; N18.9 Chronic kidney disease, unspecified; I25.10 Atherosclerotic heart disease of native coronary artery without angina pectoris; E11.65 Type 2 diabetes mellitus with hyperglycemia; E11.22 Type 2 diabetes mellitus with diabetic chronic kidney disease; N26.1 Atrophy of kidney (terminal); Z98.61 Coronary angioplasty status; Z92.21 Personal history of antineoplastic chemotherapy; Z85.118 Personal history of other malignant neoplasm of bronchus and lung; I25.2 Old myocardial infarction; Z79.899 Other long term (current) drug therapy
CPT/HCPCS: 31500; 36415; 36556; 36600; 71045; 76700; 80053; 81001; 82805; 82962; 83605; 83880; 84484; 85007; 85025; 85027; 86850; 86900; 86901; 87040; 87070; 87077; 87186; 87205; 92950; 93005; 94002; 94003; 94640; 94644; 96365; 96375; 99291; 99292; G0378; J1815; J2405; J2543; J3490